=== PATIENT | female | born 1995 | race Caucasian/White ===

== ENCOUNTER 2018-11-16 13:36 | Emergency (ER) | payer BC ==
[2018-11-16 13:43] VITALS: BP 132/78; PULSE 97; TEMP 98; BMI 22.4
[2018-11-16] MEDS ORDERED: DIPHTH,PERTUSS(ACELL),TET 0.5 ML DISP.SYRIN IM ONE ×2 (13:46→14:37)
--- NOTE | 2018-11-16 13:52 | PDOC ---
History of Present Illness - General Chief Complaint: Injury Stated Complaint: LT. ARM LAC Time Seen by Provider: 11/16/18 13:45 - History of Present Illness Initial Comments: 11/16/18 13:51 23-year-old female without comorbidities presents for evaluation of an accidental puncture wound with a scissor. This occurred on the volar aspect of her left forearm just prior to arrival. She is unsure of her current tetanus status. She reassures me there is no possibility of Past History - Past Medical History Allergies/Adverse Reactions: Allergies Allergy/AdvReac Type Severity Reaction Status Date / Time No Known Allergies Allergy Verified 11/16/18 13:43 Home Medications: Ambulatory Orders Cephalexin [Keflex] 500 mg PO QID 5 Days #20 capsule 11/16/18 COPD: No - Immunization History Immunization Up to Date: No - Suicide/Smoking/Psychosocial Hx Smoking History: Never smoked Review of Systems - Review of Systems Musculoskeletal: Yes: See HPI *Physical Exam - Vital Signs Last Vital Signs Temp Pulse Resp BP Pulse Ox 98 F 97 H 18 132/78 99 11/16/18 13:41 11/16/18 13:41 11/16/18 13:41 11/16/18 13:41 11/16/18 13:41 - Physical Exam Comments: 11/16/18 13:52 Left forearm skin color and temperature are normal. There is a subcentimeter small puncture wound on the ulnar volar aspect of the left forearm without gross sensory motor deficits. She's neurovascularly intact. ED Treatment Course - RADIOLOGY Radiology Studies Ordered: Category Date Time Status FOREARM- LEFT [RAD] Stat Radiology 11/16/18 13:47 Ordered Medical Decision Making - Medical Decision Making 11/16/18 14:28 Local wound care with soap and water. Dry sterile dressing placed. Follow-up instructions given. Tetanus updated. *DC/Admit/Observation/Transfer Diagnosis at time of Disposition: Puncture wound of forearm, left - Discharge Dispostion Disposition: HOME Condition at time of disposition: Stable Decision to Admit order: No - Referrals Referrals: Luís Oreilly [Primary Care Provider] - Ethan Bingham MD [Staff Physician] - - Patient Instructions Printed Discharge Instructions: DI for Puncture Wound Additional Instructions: Please keep the wound clean with soap and water and left open to air. You are out of the house apply a dry sterile dressing such as a Band-Aid. Please take the prophylactic antibiotics as directed. Do not apply any ointments such as bacitracin or Neosporin. Return to the emergency room for any increasing pain and redness swelling or drainage around the area of the wound and without fail follow-up with hand surgery in 1-2 days for further evaluation and treatment options. - Post Discharge Activity
== END 2018-11-16 14:48 | disposition home or self-care (01) ==
LOC: JERFT 13:36
PROC: 3E0234Z Introduction of Serum, Toxoid and Vaccine into Muscle, Percutaneous Approach (ICD-10-PCS; principal; 2018-11-16)
DX: S51.832A Puncture wound without foreign body of left forearm, initial encounter (principal); W45.8XXA Other foreign body or object entering through skin, initial encounter; Y93.89 Activity, other specified; Y92.89 Other specified places as the place of occurrence of the external cause
CPT/HCPCS: 73090-TC-LT-FY; 90715; 99281-25